=== PATIENT | male | born 1995 | race Caucasian/White ===

== ENCOUNTER 2020-02-23 11:44 | Emergency (ER) | payer OTHER ==
[2020-02-23] MEDS ORDERED: Diphtheria,Pertussis(Acell),Tetanus Vaccine 0.5 ML Syringe IM ONE (12:09)
[2020-02-23] MEDS ORDERED: Lidocaine 1% 10 ML MDV INJECT ONE (12:09)
--- NOTE | 2020-02-23 12:20 | EDM.PDOC ---
ED HPI GENERAL MEDICAL PROBLEM - General Chief Complaint: Laceration Stated Complaint: LT THUMB LAC Time Seen by Provider: 02/23/20 11:53 Source of Information: Reports: Patient, RN Notes Reviewed History Limitations: Reports: No Limitations - History of Present Illness INITIAL COMMENTS - FREE TEXT/NARRATIVE: Patient is a 25-year-old male who presents to the ED for his left thumb laceration. Patient states that around 1120 today, he was at work on a construction site and ended up cutting his left medial thumb with a sheet of new 10. The laceration itself measures around 4 cm in length, there was some oozing at initial time of triage of blood, but the patient has been soaking his finger in a Betadine solution and water since arrival. Pain is around a 4 out of 10, patient still can flex and extend the thumb with no issues, he has no numbness or tingling distal to the injury. Patient is complaining of some lightheadedness/dizziness, as he does not like the site of blood, and will not look at the injury. Blood pressure at time of triage was slightly low at 105 systolically. Patient does feel faint. He is not sure of his last tetanus booster. Left Finger-Thumb Pain Score (Numeric/FACES): 4 - Related Data Allergies Allergy/AdvReac Type Severity Reaction Status Date / Time No Known Allergies Allergy Verified 02/23/20 11:56 Home Meds: Home Meds Creatine Monohydrate [Creatine 5000] 5,000 mg PO ASDIRECTED 02/23/20 [History] Past Medical History - Past Health History Medical/Surgical History: Denies Medical/Surgical History Social & Family History - Tobacco Use Smoking Status *Q: Current Every Day Smoker Years of Tobacco use: 5 Packs/Tins Daily: 1 - Caffeine Use Caffeine Use: Reports: Coffee, Energy Drinks - Recreational Drug Use Recreational Drug Use: No ED ROS GENERAL - Review of Systems Review Of Systems: Comprehensive ROS is negative, except as noted in HPI. ED EXAM, SKIN/RASH Exam: See Below Exam Limited By: No Limitations General Appearance: Alert, WD/WN, No Apparent Distress, Anxious (does appear slightly cool and clammy) Head: Atraumatic, Normocephalic Neck: Normal Inspection Respiratory/Chest: No Respiratory Distress, Lungs Clear, Normal Breath Sounds, No Accessory Muscle Use, Chest Non-Tender Cardiovascular: Normal Peripheral Pulses, Regular Rate, Rhythm, No Murmur Peripheral Pulses: 3+: Radial (L), Radial (R) Extremities: Normal Range of Motion, Normal Capillary Refill, Other (4 cm laceration to left lateral thumb over the PIP joint) Neurological: Alert, Oriented, Normal Cognition, No Motor/Sensory Deficits Psychiatric: Normal Affect, Normal Mood, Anxious Skin: Warm, Dry, Normal Color, No Rash, Wound/Incision (4cm linear laceration to left lateral thumb over the PIP joint) ED SKIN PROCEDURES - Laceration/Wound Repair Left Lateral Digit - 1st (Thumb) Appearance: Superficial, Linear, Clean Distal NVT: Neuro & Vascular Intact, No Tendon Injury Anesthetic Type: Local Local Anesthesia - Lidocaine (Xylocaine): 1% Plain Local Anesthetic Volume: 3cc Skin Prep: Providone-Iodine (Betadine), Saline Saline Irrigation (cc's): 250 Exploration/Debridement/Repair: Wound Explored, In a Bloodless Field, Explored to Base, No Foreign Material Found Closed with: Sutures Lac/Wound length In cm: 4 Suture Size: 4-0 # of Sutures: 9 Suture Type: Prolene, Interrupted, Simple Sterile Dressing Applied: Nurse Tetanus Status Addressed: Yes (updated today) Complications: No Progress/Comments: aluminum foam cage type splint applied to left thumb as the laceration was over a joint; to help prevent flexion/extension while wound is healing. Course - Vital Signs Last Recorded V/S: Last Vital Signs Temp 98.0 F 02/23/20 12:02 Pulse 55 L 02/23/20 12:02 Resp 20 02/23/20 12:02 BP 105/47 L 02/23/20 12:02 Pulse Ox 100 02/23/20 12:02 - Orders/Labs/Meds Orders: Active Orders 24 hr Category Date Time Status Vaccines to be Administered [RC] PER UNIT ROUTINE Care 02/23/20 12:09 Ordered Meds: Medications Discontinued Medications Generic Name Dose Route Start Last Admin Trade Name Freq PRN Reason Stop Dose Admin Diphtheria/Tetanus/Acell Pertussis 0.5 ml 02/23/20 12:02/23/20 12:26 Adacel IM 02/23/20 12:10 0.5 ml .ONCE ONE Administration Lidocaine HCl 10 ml 02/23/20 12:02/23/20 12:26 Xylocaine 1% INJECT 02/23/20 12:10 10 ml ONETIME ONE Administration Departure - Departure Time of Disposition: 12:24 Disposition: Home, Self-Care 01 Condition: Good Clinical Impression: Laceration of left thumb Qualifiers: Encounter type: initial encounter Damage to nail status: without damage Foreign body presence: without foreign body Qualified Code(s): S61.012A - Laceration without foreign body of left thumb without damage to nail, initial encounter - Discharge Information *PRESCRIPTION DRUG MONITORING PROGRAM REVIEWED*: No *COPY OF PRESCRIPTION DRUG MONITORING REPORT IN PATIENT ASHLEY: No Instructions: Laceration Care, Adult, [id number] Referrals: PCP,None [Primary Care Provider] - Forms: ED Department Discharge Additional Instructions: You have been evaluated in the ED for your laceration. Sutures will need to stay in for 10-14 days (03/04-03/08) You may return to the ED or any clinic for removal. Please keep this area clean and dry, you may cleanse with regular soap and water. No vigorous scrubbing. Watch out for signs of infection like increased redness, swelling, pain at the laceration site, or if you should develop any fevers or chills. Please return to ED if your symptoms change or worsen. Sepsis Event Note (ED) - Evaluation Sepsis Screening Result: No Definite Risk - Focused Exam Vital Signs: Vital Signs Temp Pulse Resp BP Pulse Ox 02/23/20 12:02 98.0 F 55 L 20 105/47 L 100 - My Orders Last 24 Hours: My Active Orders 02/23/20 12:09 Vaccines to be Administered [RC] PER UNIT ROUTINE - Assessment/Plan Last 24 Hours: My Active Orders 02/23/20 12:09 Vaccines to be Administered [RC] PER UNIT ROUTINE
== END 2020-02-23 13:25 | disposition home or self-care (01) ==
LOC: JD.ED 11:44
DX: S61.012A Laceration without foreign body of left thumb without damage to nail, initial encounter (principal); F17.210 Nicotine dependence, cigarettes, uncomplicated; Z23 Encounter for immunization; W26.8XXA Contact with other sharp object(s), not elsewhere classified, initial encounter; Y92.69 Other specified industrial and construction area as the place of occurrence of the external cause; Y99.0 Civilian activity done for income or pay
CPT/HCPCS: 12002; 90471; 90715; 99282; J2001

== ENCOUNTER 2023-04-27 18:24 | Emergency (ER) | payer BC, OTHER ==
[2023-04-27] MEDS ORDERED: Orphenadrine 100 MG Tab.ER PO ONE (21:29)
[2023-04-28] MEDS ORDERED: Orphenadrine 100 MG Tab.ER PO ONE (21:00)
== END 2023-04-27 21:37 | disposition home or self-care (01) ==
LOC: JD.ED 18:24
DX: S06.0X0A Concussion without loss of consciousness, initial encounter (principal); S13.9XXA Sprain of joints and ligaments of unspecified parts of neck, initial encounter; Z79.899 Other long term (current) drug therapy; X58.XXXA Exposure to other specified factors, initial encounter
CPT/HCPCS: 70450; 72125; 99283; A9270